=== PATIENT | female | born 1990 | race Caucasian/White ===

== ENCOUNTER 2019-01-03 07:24 | Emergency (ER) | payer MEDICAID ==
[~2019-01-03] VITALS: Ht 172.7 cm; Wt 68.9 kg
[2019-01-03 08:00] VITALS: BP 147/97
[2019-01-03] MEDS ORDERED: LIDOCAINE 1% HCL (LOCAL ANESTH.) INJ 20ML MDV IJ ONE (08:15)
[2019-01-03] MEDS ORDERED: cefTRIAXone SOD 1,000 MG VL IM ONE (08:15)
[2019-01-03] MEDS ORDERED: LIDOCAINE VISCOUS 2% 15ML UD MT ONE (08:15)
== END 2019-01-03 08:37 | disposition home or self-care (01) ==
LOC: ER 07:24
DX: J02.0 Streptococcal pharyngitis (principal)
CPT/HCPCS: 87880; 96372; 99283; J0696; J2001

== ENCOUNTER 2024-03-25 17:29 | Emergency (ER) | payer MEDICAID ==
[~2024-03-25] VITALS: Ht 170.2 cm; Wt 92.7 kg
[2024-03-25 17:35] VITALS: BP 123/67; PULSE 73; RESP 18; O2SAT 98
== END 2024-03-27 07:52 | disposition left against medical advice (07) ==
LOC: ER 17:34
DX: S09.92XA Unspecified injury of nose, initial encounter (principal); Z53.21 Procedure and treatment not carried out due to patient leaving prior to being seen by health care provider; W22.8XXA Striking against or struck by other objects, initial encounter; Y93.89 Activity, other specified; Y92.89 Other specified places as the place of occurrence of the external cause; Y99.8 Other external cause status